=== PATIENT | female | born 1985 | race Caucasian/White ===

== ENCOUNTER 2020-05-06 06:45 | Inpatient (IN) ==
[2020-05-06] MEDS ORDERED: ANCEF 1 GRAM IV PREMIX* 2 G/100 ML BAG IV ONE (06:53)
[2020-05-06] MEDS ORDERED: LR 1000 ML IV 1,000 ML IV ONE ×3 (06:53→07:34)
[2020-05-06] MEDS ORDERED: DILAUDID INJ ONE (07:05)
[2020-05-06] MEDS ORDERED: XYLOCAINE 1 % (PLAIN) ONE (07:05)
[2020-05-06] MEDS ORDERED: ANCEF 1 GRAM IV PREMIX* 1 G/50 ML BAG IV ONE (07:22)
[2020-05-06] MEDS ORDERED: ANCEF VIAL 1 GRAM IVP ONE (07:32)
[2020-05-06] MEDS ORDERED: D5 1/2 NS 1000 ML 1,000 ML IV ONE (07:39)
[2020-05-06] MEDS ORDERED: PITOCIN ONE ×2 (07:39→07:45)
[2020-05-06] MEDS ORDERED: DIPRIVAN VIAL ONE (07:45)
[2020-05-06] MEDS ORDERED: REGLAN INJ 10 MG VIAL ONE (07:45)
[2020-05-06] MEDS ORDERED: XYLOCAINE 2 % (PLAIN) ONE (07:45)
[2020-05-06] MEDS ORDERED: EPHEDRINE SULFATE INJ ONE (07:45)
[2020-05-06] MEDS ORDERED: ZOFRAN INJ 4 MG VIAL ONE (07:45)
[2020-05-06] MEDS ORDERED: NS 1000 ML 1,000 ML ONE (08:36)
[2020-05-06] MEDS ORDERED: REGLAN INJ 10 MG VIAL IVP PRN (09:39)
[2020-05-06] MEDS ORDERED: PHENERGAN INJ 25 MG IM PRN (09:39)
[2020-05-06] MEDS ORDERED: BENADRYL INJ 50 MG VIAL IVP PRN (09:39)
[2020-05-06] MEDS ORDERED: ZOFRAN INJ 4 MG VIAL IVP PRN ×2 (09:39→09:55)
[2020-05-06] MEDS ORDERED: MOTRIN TAB 800 MG PO PRN (09:55)
[2020-05-06] MEDS ORDERED: MYLICON TAB 80 MG CHEW PO PRN (09:55)
[2020-05-06] MEDS ORDERED: D5 1/2 NS 1000 ML 1,000 ML with PITOCIN 20 UNITS IV SCH ×2 (10:00)
[2020-05-06] MEDS ORDERED: NS IRRIGATION* 1,000 ML ONE (10:04)
[2020-05-06] MEDS: TORADOL 15 MG VIAL IVP SCH ×4 (11:10→22:00)
[2020-05-07] MEDS: TORADOL 15 MG VIAL IVP SCH ×4 (04:15→20:50)
[2020-05-07 04:21] LABS: HEMATOCRIT 37.9 % (36.0-47.0); HEMOGLOBIN 12.8 g/dL (12.0-16.0)
[2020-05-07] MEDS ORDERED: ZOLOFT PO ONE (08:23)
[2020-05-07] MEDS ORDERED: TORADOL 30 MG VIAL IVP PRN (10:00)
[2020-05-07] MEDS: ZOLOFT PO SCH ×2 (10:05→11:28)
[2020-05-07] MEDS: PRENATAL PLUS PO SCH ×2 (10:05→11:27)
[2020-05-07] MEDS: NORMODYNE TAB 100 MG PO SCH ×3 (10:06→20:51)
[2020-05-07] MEDS: SYNTHROID 50 mcg TAB PO SCH ×2 (10:07→11:28)
[2020-05-07] MEDS: PROCARDIA (PLAIN) CAP 10 MG PO SCH ×3 (10:07→21:35)
--- NOTE | 2020-05-07 10:49 | NOTE.PROBC ---
Progress Note OB-C/S Subjective Data Subjective: No complaints, decreased lochia. Tolerating {regular diet. No N/V. Ambulating well. Haynes draining well. Pain under good control with Toradol. Objective Data Result Diagrams: 05/07/20 04:02 Objective Data: CV= RRR no MRG Lungs=CTA Bilaterally Abd=(+) BS, soft, ND, appropriately tender near incision. Bandage removed. Incision clean/dry/intact, no erythema, no bleeding, no discharge. Dermabond/S titches intact. Fundus firm/NT/ at 2 cm below umbilicus. Ext= No edema, NT, No Cords. Graduated Compression Stockings/Sequential Compression Devices Bilaterally. Plan (1) Delivery by section: Plan: doing well and near ready to go home on Percocet and Motrin. prescription monitoring program has been reviewed.
[2020-05-08] MEDS: TORADOL 15 MG VIAL IVP SCH ×2 (05:00→09:37)
[2020-05-08] MEDS ORDERED: ZOLOFT PO ONE (09:29)
[2020-05-08] MEDS: PRENATAL PLUS PO SCH (09:36)
[2020-05-08] MEDS: ZOLOFT PO SCH (09:37)
[2020-05-08] MEDS: NORMODYNE TAB 100 MG PO SCH (09:37)
[2020-05-08] MEDS: PROCARDIA (PLAIN) CAP 10 MG PO SCH (09:46)
[2020-05-08 13:49] VITALS: BP 136/86
== END 2020-05-08 14:10 | disposition home or self-care (01) | DRG 788 ==
LOC: LD 06:45 → MED/SURG 10:54
PROVIDERS: ADMIT Obstetrics & Gynecology; ATTEND Obstetrics & Gynecology
DX: Z3A.39 39 weeks gestation of pregnancy; O99.283 Endocrine, nutritional and metabolic diseases complicating pregnancy, third trimester; Z37.0 Single live birth; O10.013 Pre-existing essential hypertension complicating pregnancy, third trimester; O24.410 Gestational diabetes mellitus in pregnancy, diet controlled; E03.8 Other specified hypothyroidism

== ENCOUNTER 2021-01-27 05:03 | Observation (INO) ==
[2021-01-27 05:16] VITALS: BMI 44.3
[2021-01-27] MEDS ORDERED: NS 1000 ML 1,000 ML IV ONE (05:34)
[2021-01-27] MEDS ORDERED: TYLENOL 325 MG TAB PO ONE ×2 (05:34→05:55)
--- NOTE | 2021-01-27 05:34 | DR.FEVERAD ---
HPI <Jeff Arreaga - Kameron Filed: 01/27/21 08:46> Time seen Time Seen by Provider: 01/27/21 05:26 PCP Primary Care Physician: EMILIA HERNANDEZ HPI Comment HPI Comment: PATIENT COMPLAINS OF FEVER, CHILLS, NONPRODUCTIVE COUGH, RIGHT BREAST PAIN, SWELLING AND REDNESS. HAS EXERTIONAL DYSPNEA Complaints/Symptoms Chief Complaint Doctor Comments: FEVER, NAUSEA, EMESIS Chief Complaint:: STARTED WEDNESDAY NIGHT HAVING FEVER, N/V, CHILLS. Self Treatment fo Chief Complaint: KEFLEX LASTNIGHT ABOUT 1900, TYLENOL AT 0345, MOTRIN AT 0345. COVID-19 Coronavirus risk:travel/contact w/high risk person: Yes Has patient experienced Coronavirus symptoms: Yes Coronavirus symptoms experienced: Fever, Coughing and Shortness of Breath Source History Provided: Patient Mode of Arrival Mode of Arrival: Wheelchair Timing Onset of Chief Complaint: 01/25/21 Came on: Suddenly Duration Duration: Since Onset How lon Duration: Days Modifying factors Modifying factors: Tylenol Associated signs and symptoms Associated signs and symptoms: Weakness PMH <Jeff Arreaga - Last Filed: 01/27/21 08:46> PMH Past Medical History: Yes Past Medical History: Hypertension Past Surgical History: Yes Surgical History: Family History History of Family Medical Conditions: Yes Family Medical History: Diabetes Mellitus, Cancer and Hypertension Social History Does any household member use tobacco: No Do you use any recreational Drugs:: No Lives With: Family Lives Where: Home Travel Risk Coronavirus risk:travel/contact w/high risk person: Yes Has patient experienced Coronavirus symptoms: Yes Coronavirus symptoms experienced: Fever, Coughing and Shortness of Breath Infectious screening Have you traveled outside the country in the last 6 months?: No Isolation: Droplet ROS <Jeff Sres Kameron Filed: 01/27/21 08:46> Review of Systems Constitutional: See HPI, Chills, Fever and Weakness Eyes: No Symptoms Reported ENTM: No Symptoms Reported Respiratoy: See HPI and Dry Cough Cardiovascular: No Symptoms Reported Gastrointestinal/Abdominal: No Symptoms Reported Genitourinary: No Symptoms Reported Neurological: No Symptoms Reported Musculoskeletal: No Symptoms Reported Integumentary: Other (RIGHT BREAST PAIN, SWELLING, REDNESS) Hematologic/Lymphatic: No Symptoms Reported Endocrine: No Symptoms Reported Psychiatric: No Symptoms Reported All Other Systems: Reviewed and Negative PE <Jeff Arreaga - Last Filed: 01/27/21 08:46> Vital Signs Vitals: Temperature 99.5 F Pulse Rate 99 Respiratory Rate 22 Blood Pressure [Left Arm] 136/86 Blood Pressure 124/75 O2 Sat by Pulse Oximetry 97 General General Appearance: Alert and In Distress (MODERATE TACHYPNEA) Head Head Exam: Normal Inspection and Atraumatic Eyes Eye exam: Normal Appearance, PERRL and EOMI ENT ENT Exam: Normal Exam and Normal Oropharynx External Ear Exam: Normal External Inspection TM/Canal Exam: Bilateral: Normal Nose Exam: Normal Nose Exam Mouth Exam: Normal Inspection Neck Neck Exam: Normal Inspection and Full ROM Respiratory Respiratory Exam: Bilateral: Clear to Auscultation (NO WHEEZES OR RHONCHI), Bilateral: Decreased Breath Sounds and Bilateral: Dullness on Percussion and Lower: Decreased Breath Sounds and Lower: Dullness on Percussion Cardiovascular Cardiovascular Exam: Normal Rhythm and Tachycardia Abdominal Exam Abdominal Exam: Normal Inspection and Normal Bowel Sounds Back Back Exam: Normal Inspection and Full ROM Neurologic Neurological Exam: Alert and Oriented X3 Psychiatric Psychiatric Exam: Normal Affect and Normal Mood Skin Skin Exam: Erythema (RIGHT BREAST LOWER OUTER QUADRANT WITH TENDERNESS,SWELLING ERYTHEMA) <JILLIAN HALE - Last Filed: 01/27/21 10:00> Vital Signs Vitals: Temperature 99.5 F Pulse Rate 99 Respiratory Rate 22 Blood Pressure [Left Arm] 136/86 Blood Pressure 124/75 O2 Sat by Pulse Oximetry 97 [facility] <Jeff Arreaga - Last Filed: 01/27/21 08:46> Differential Diagnosis Differential Diagnosis: Sepsis (COVID, PNEUMONIA, ACUTE MASTITIS) COURSE <Jeff Arreaga - Last Filed: 01/27/21 08:46> Treatment Treatment: IV NORMAL SALINE 1 LITER BOLUS, AFTER 2 SETS BLOOD CULTURES, CLINDAYMCIN 900MG IVPB, TYLENOL 650MG ORALLY, PULSE OXIMETRY 95% ON 2 LITERS. PATIENT CARE ENDORSED TO DR HALE AT 0845 FOR DISPOSITION ROR <Jeff Arreaga - Last Filed: 01/27/21 08:46> Labs Reviewed Laboratory Results Reviewed?: Yes Result Diagrams: 01/27/21 06:00 01/27/21 06:00 Laboratory: WBC 10.2 X10^3/uL (3.6-10.0) H 01/27/21 06:00 RBC 4.58 X10^6/uL (3.5-5.4) 01/27/21 06:00 Hgb 13.6 g/dL (12.0-16.0) 01/27/21 06:00 Hct 38.8 % (36.0-47.0) 01/27/21 06:00 MCV 84.8 fL (80.0-100.0) 01/27/21 06:00 MCH 29.7 pg (27.0-34.0) 01/27/21 06:00 MCHC 35.0 g/dL (33.0-35.0) 01/27/21 06:00 RDW 13.8 % (11.6-16.5) 01/27/21 06:00 Plt Count 195 X10^3/uL (150.0-450.0) 01/27/21 06:00 MPV 7.6 fL (7.4-11.0) 01/27/21 06:00 Neut % (Auto) 85.4 % (42.0-75.0) H 01/27/21 06:00 Lymph % (Auto) 7.5 % (21.0-51.0) L 01/27/21 06:00 Brooks % (Auto) 4.5 % (0.0-13.0) 01/27/21 06:00 Eos % (Auto) 2.5 % (0.9-2.9) 01/27/21 06:00 Baso % (Auto) 0.1 % (0.2-1.0) L 01/27/21 06:00 Neut # (Auto) 8.7 x10^3/uL (2.2-4.8) H 01/27/21 06:00 Lymph # (Auto) 0.8 X10^3/uL (1.3-2.9) L 01/27/21 06:00 Brooks # (Auto) 0.5 x10^3/uL (0.3-0.8) 01/27/21 06:00 Eos # (Auto) 0.3 x10^3/uL (0.0-0.2) H 01/27/21 06:00 Baso # (Auto) 0.0 X10^3/uL (0.0-0.1) 01/27/21 06:00 Absolute Nucleated RBC 0.0 /100WBC 01/27/21 06:00 PT 15.3 SECONDS (11.8-14.3) 01/27/21 06:00 INR Target Range - 01/27/21 06:00 INR 1.27 (0.8-1.3) 01/27/21 06:00 D-Dimer 0.97 ug/ml (0.0-0.57) H* 01/27/21 06:00 Sample Site Rr 01/27/21 05:21 ABG pH 7.510 (7.35-7.45) H 01/27/21 05:21 ABG pCO2 31.0 mmHg (35.0-45.0) L 01/27/21 05:21 ABG pO2 47.0 mmHg (80.0-100.0) L* 01/27/21 05:21 ABG HCO3 24.7 mmol/L (22-26) 01/27/21 05:21 ABG O2 Saturation 87.0 % (90-100) L 01/27/21 05:21 ABG Base Excess 2.2 mmol/L (-2.0-2.0) H 01/27/21 05:21 David Test Pos 01/27/21 05:21 A-a Gradient 64.0 mmHg 01/27/21 05:21 FiO2 21.0 01/27/21 05:21 Blood Gas Comments Shannon well 01/27/21 05:21 Sodium 141 mmol/L (136-145) 01/27/21 06:00 Corrected Sodium 142 mmol/L (136-145) 01/27/21 06:00 Potassium 3.3 mmol/L (3.5-5.1) L 01/27/21 06:00 Chloride 104 mmol/L (98-107) 01/27/21 06:00 Carbon Dioxide 24.0 mmol/L (21-32) 01/27/21 06:00 BUN 12 mg/dL (7-18) 01/27/21 06:00 Creatinine 1.05 mg/dL (0.55-1.02) H 01/27/21 06:00 Est GFR (MDRD) Af Amer > 60 (>60) 01/27/21 06:00 Est GFR (MDRD) Non-Af > 60 (>60) 01/27/21 06:00 Glucose 137 mg/dL (65-99) H 01/27/21 06:00 Lactic Acid 2.0 mmol/L (0.4-2.0) 01/27/21 06:00 Calcium 8.7 mg/dL (8.5-10.1) 01/27/21 06:00 Ferritin 221 ng/mL (8-252) 01/27/21 06:00 HCG, Qual Negative <10 mIU/mL 01/27/21 06:00 SARS-CoV-2 (PCR) Positive (NEGATIVE) A 01/27/21 05:26 Influenza Type A (PCR) Negative (NEGATIVE) 01/27/21 05:26 Influenza Type B (PCR) Negative (NEGATIVE) 01/27/21 05:26 RSV (PCR) Negative (NEGATIVE) 01/27/21 05:26 XRAY X-ray Results: PORTABLE CHEST XRAY- PATCHY OPACITY LEFT MID LOWER LUNG EKG Rate: 111 [place]: Normal Rhythm: ST ST: Nonsp <PETER M ESMONT - Last Filed: 01/27/21 10:00> Labs Reviewed Laboratory: WBC 10.2 X10^3/uL (3.6-10.0) H 01/27/21 06:00 RBC 4.58 X10^6/uL (3.5-5.4) 01/27/21 06:00 Hgb 13.6 g/dL (12.0-16.0) 01/27/21 06:00 Hct 38.8 % (36.0-47.0) 01/27/21 06:00 MCV 84.8 fL (80.0-100.0) 01/27/21 06:00 MCH 29.7 pg (27.0-34.0) 01/27/21 06:00 MCHC 35.0 g/dL (33.0-35.0) 01/27/21 06:00 RDW 13.8 % (11.6-16.5) 01/27/21 06:00 Plt Count 195 X10^3/uL (150.0-450.0) 01/27/21 06:00 MPV 7.6 fL (7.4-11.0) 01/27/21 06:00 Neut % (Auto) 85.4 % (42.0-75.0) H 01/27/21 06:00 Lymph % (Auto) 7.5 % (21.0-51.0) L 01/27/21 06:00 Brooks % (Auto) 4.5 % (0.0-13.0) 01/27/21 06:00 Eos % (Auto) 2.5 % (0.9-2.9) 01/27/21 06:00 Baso % (Auto) 0.1 % (0.2-1.0) L 01/27/21 06:00 Neut # (Auto) 8.7 x10^3/uL (2.2-4.8) H 01/27/21 06:00 Lymph # (Auto) 0.8 X10^3/uL (1.3-2.9) L 01/27/21 06:00 Brooks # (Auto) 0.5 x10^3/uL (0.3-0.8) 01/27/21 06:00 Eos # (Auto) 0.3 x10^3/uL (0.0-0.2) H 01/27/21 06:00 Baso # (Auto) 0.0 X10^3/uL (0.0-0.1) 01/27/21 06:00 Absolute Nucleated RBC 0.0 /100WBC 01/27/21 06:00 PT 15.3 SECONDS (11.8-14.3) 01/27/21 06:00 INR Target Range - 01/27/21 06:00 INR 1.27 (0.8-1.3) 01/27/21 06:00 D-Dimer 0.97 ug/ml (0.0-0.57) H* 01/27/21 06:00 Sample Site Rr 01/27/21 05:21 ABG pH 7.510 (7.35-7.45) H 01/27/21 05:21 ABG pCO2 31.0 mmHg (35.0-45.0) L 01/27/21 05:21 ABG pO2 47.0 mmHg (80.0-100.0) L* 01/27/21 05:21 ABG HCO3 24.7 mmol/L (22-26) 01/27/21 05:21 ABG O2 Saturation 87.0 % (90-100) L 08/16/21 05:21 ABG Base Excess 2.2 mmol/L (-2.0-2.0) H 01/27/21 05:21 David Test Pos 01/27/21 05:21 A-a Gradient 64.0 mmHg 01/27/21 05:21 FiO2 21.0 01/27/21 05:21 Blood Gas Comments Shannon well sw 01/27/21 05:21 Sodium 141 mmol/L (136-145) 01/27/21 06:00 Corrected Sodium 142 mmol/L (136-145) 01/27/21 06:00 Potassium 3.3 mmol/L (3.5-5.1) L 01/27/21 06:00 Chloride 104 mmol/L (98-107) 01/27/21 06:00 Carbon Dioxide 24.0 mmol/L (21-32) 01/27/21 06:00 BUN 12 mg/dL (7-18) 01/27/21 06:00 Creatinine 1.05 mg/dL (0.55-1.02) H 01/27/21 06:00 Est GFR (MDRD) Af Amer > 60 (>60) 01/27/21 06:00 Est GFR (MDRD) Non-Af > 60 (>60) 01/27/21 06:00 Glucose 137 mg/dL (65-99) H 01/27/21 06:00 Lactic Acid 2.0 mmol/L (0.4-2.0) 01/27/21 06:00 Calcium 8.7 mg/dL (8.5-10.1) 01/27/21 06:00 Ferritin 221 ng/mL (8-252) 01/27/21 06:00 HCG, Qual Negative <10 mIU/mL 01/27/21 06:00 SARS-CoV-2 (PCR) Positive (NEGATIVE) A 01/27/21 05:26 Influenza Type A (PCR) Negative (NEGATIVE) 01/27/21 05:26 Influenza Type B (PCR) Negative (NEGATIVE) 01/27/21 05:26 RSV (PCR) Negative (NEGATIVE) 01/27/21 05:26 Opioid <Jeff Arreaga - Last Filed: 01/27/21 08:46> Opioid Risk Tool Age (Tristan box if 16-45): No History of Preadolescent Sexual Abuse: No Total: 0 Total Score Risk Category: Low Risk Copyright: Dani PICKENS predicting aberrant behaviors <JILLIAN HALE - Last Filed: 01/27/21 10:00> Opioid Risk Tool Total: 0 Total Score Risk Category: Low Risk <Jeff Arreaga - Last Filed: 01/27/21 08:46> Diagnosis Discharge Problem: COVID <JILLIAN HALE - Last Filed: 01/27/21 10:00> Additional Notes Additional Notes: obs to dr murphy
[2021-01-27 05:35] LABS: ABG BASE EXCESS 2.2 mmol/L (-2.0-2.0); ABG HCO3 24.7 mmol/L (22-26)
[2021-01-27 05:36] LABS: ABG ALLEN TEST POS
[2021-01-27] MEDS ORDERED: NS 1000 ML 1,000 ML ONE (05:42)
[2021-01-27] MEDS ORDERED: DUONEB 0.5 MG/3 MG (3 mL) NEB STA (05:45)
[2021-01-27] MEDS ORDERED: DUONEB 0.5 MG/3 MG (3 mL) NEB ONE (05:49)
[2021-01-27] MEDS ORDERED: CLEOCIN VIAL 600 MG 900 MG in D5W 50 ML IV 50 ML IV STA (06:04)
[2021-01-27] MEDS ORDERED: CLEOCIN 300 MG IV PREMIX 300 MG/50 ML BAG IV ONE (06:12)
[2021-01-27] MEDS ORDERED: CLEOCIN 600 MG IV PREMIX 600 MG/50 ML BAG IV ONE (06:12)
[2021-01-27 06:30] LABS: BASOPHILS % (AUTO) 0.1 % (0.2-1.0); EOSINOPHILS # (AUTO) 0.3 x10^3/uL (0.0-0.2); EOSINOPHILS % (AUTO) 2.5 % (0.9-2.9); HEMATOCRIT 38.8 % (36.0-47.0); HEMOGLOBIN 13.6 g/dL (12.0-16.0); LYMPHOCYTES # (AUTO) 0.8 X10^3/uL (1.3-2.9); LYMPHOCYTES % (AUTO) 7.5 % (21.0-51.0); MEAN CORPUSCULAR HEMOGLOBIN 29.7 pg (27.0-34.0); MEAN CORPUSCULAR VOLUME 84.8 fL (80.0-100.0); MEAN PLATELET VOLUME 7.6 fL (7.4-11.0); MONOCYTES # (AUTO) 0.5 x10^3/uL (0.3-0.8); MONOCYTES % (AUTO) 4.5 % (0.0-13.0); NEUTROPHILS # (AUTO) 8.7 x10^3/uL (2.2-4.8); NEUTROPHILS % (AUTO) 85.4 % (42.0-75.0); PLATELET COUNT 195 X10^3/uL (150.0-450.0); RED BLOOD COUNT 4.58 X10^6/uL (3.5-5.4); RED CELL DISTRIBUTION WIDTH 13.8 % (11.6-16.5); WHITE BLOOD COUNT 10.2 X10^3/uL (3.6-10.0)
[2021-01-27 06:38] LABS: BLOOD UREA NITROGEN 12 mg/dL (7-18); CALCIUM 8.7 mg/dL (8.5-10.1); CHLORIDE 104 mmol/L (98-107); COR NA(FOR HYPERGLY) 142 mmol/L (136-145); CREATININE 1.05 mg/dL (0.55-1.02); SODIUM 141 mmol/L (136-145); eGFR NON BLACK RACES > 60 (>60)
[2021-01-27 07:27] LABS: SERUM PREGNANCY TEST, QUAL NEGATIVE <10 mIU/mL
--- NOTE | 2021-01-27 07:29 | RAD ---
HISTORYDYSPNEASTUDYCHEST, 1 VIEWCOMPARISONNoneTECHNIQUEAP view of the chestFINDINGSCardiac and mediastinal contours are within normal limits. Mild left mid and lower lung patchy opacity. No definite pleural effusion or pneumothorax. Soft tissue attenuation limits evaluation.IMPRESSIONPatchy opacity in the left mid and lower lung may represent pneumonia.Electronically signed by: Jakob Yanez (Jan 27, 2021 07:27:30)
--- NOTE | 2021-01-27 08:44 | US ---
HISTORYMASTITIS RT BREAST, REDNESS AND PAINFUL TO TOUCH, BREASTFEEDINGSTUDYBREASTCOMPARISONNoneTECHNIQUEMultiple browning scale and color Doppler images of the ri ght breast were obtained.FINDINGSSonographic evaluation of the region of interest was performed along the inferior breast from 5 through 9 o'clock. There is heterogeneous background echotexture with dif fuse edema and hypervascularity but without definite focal organized fluid collection to suggest absc ess. No suspicious cystic or solid nodule is identified.IMPRESSIONSonographic findings most consisten t with mastitis. No definite abscess. Clinical correlation and follow-up recommended. Patient should begin yearly mammographic screening at age 40 unless clinically indicated prior to that time. If the patient were to develop progressive/worsening clinical symptoms, breast MRI without and with contrast could be considered.ACR CATEGORY: 2- benign.Electronically signed by: LUPIS DUMONT (Jan 27, 2021 08 :42:28)
--- NOTE | 2021-01-27 09:36 | CT ---
HISTORY:Mastitis, nausea and vomiting, fever, elevated D-dimerStudy: CTA chestComparison:Same day radiographTechnique: Multiple axial images of the chest were obtained after the administration of IV contrast. 3D reconstructions were performed utilizing radial maximum intensity projection imaging. Dose reduction techniques including Automated Exposure Control (AEC) and adjustment of mA and kV were utilized.Findings:Contrast opacification of the pulmonary arteries is adequate to the level of the proximal segmental branches. No evidence of acute pulmonary emboli . Normal appearance of the heart and pericardium . The aorta appears normal in course and caliber. Multifocal ground-glass infiltrates are seen in the left upper lobe. Probable developing infiltrates or edema in the left lower lobe. No effusion or pneumothorax. Airways are patient.The soft tissues and osseous structures appear intact. Partially visualized bariatric surgery in the upper abdomen.IMPRESSION:Multifocal ground-glass infiltrates in the left upper lobe with probable developing infiltrates in the left lower lobe suggestive of pneumonia with atypical etiologies such as COVID-19 not excluded.No acute pulmonary embolism.Electronically signed by: MIKEY CRUZ (Jan 27, 2021 09:35:57)
[2021-01-27 10:12] LABS: BILIRUBIN,URINE NEGATIVE (NEGATIVE); BLOOD/HEMOGLOBIN,URINE 1+ (NEGATIVE); GLUCOSE, URINE NEGATIVE (NEGATIVE); KETONES,URINE NEGATIVE (NEGATIVE); LEUKOCYTE ESTERASE ,URINE 1+ (NEGATIVE); NITRITES,URINE NEGATIVE (NEGATIVE); PROTEIN,URINE 3+ (NEGATIVE); UROBILINOGEN,URINE NORMAL (NORMAL)
[2021-01-27 10:26] LABS: APPEARANCE,URINE SLIGHTLY HAZY (CLEAR); BACTERIA,URINE TRACE /HPF (NEGATIVE); COLOR,URINE YELLOW (YELLOW); RBC,URINE 0-2 /HPF (0-3); SQUAMOUS EPITHELIAL CELL,UR MODERATE /HPF (NEGATIVE)
[2021-01-27] MEDS ORDERED: ZOFRAN INJ 4 MG VIAL IVP PRN (11:37)
[2021-01-27] MEDS: TYLENOL 325 MG TAB PO PRN ×2 (11:56→16:15)
[2021-01-27] MEDS ORDERED: REMDESIVIR 200 MG in NS 100 ML IV 140 ML IV NR (13:07)
[2021-01-27] MEDS ORDERED: PHARMACY CONSULT - IVERMECTIN XX SCH (14:00)
[2021-01-27] MEDS: ROBITUSSIN DM PO SCH ×3 (15:10→21:30)
[2021-01-27] MEDS: PROTONIX INJ 40 MG VIAL IVP SCH ×2 (15:10→21:30)
[2021-01-27] MEDS: IVERMECTIN PO SCH (15:10)
[2021-01-27] MEDS: SOLU-Medrol 40 MG VIAL IVP SCH ×2 (15:10→21:55)
[2021-01-27] MEDS: NS 1000 ML 1,000 ML IV SCH (15:10)
[2021-01-27] MEDS: LOVENOX INJ 40 MG SYR SC SCH (16:13)
[2021-01-27] MEDS: ZITHROMAX INJ 500 MG VIAL 500 MG in NS 250 ML IV 250 ML IV SCH (16:14)
[2021-01-27] MEDS: ZOSYN VIAL 3.375 GRAMS 3.375 G in NS 100 ML IV + SPIKE MINIBAG* 100 ML IV SCH ×2 (18:27→23:25)
[2021-01-27] MEDS: PULMICORT NEB TX 0.5 MG NEB SCH (22:00)
[2021-01-27] MEDS: BROVANA IN SCH (22:00)
[2021-01-28 04:53] LABS: ABG ALLEN TEST POS; ABG BASE EXCESS 0.3 mmol/L (-2.0-2.0); ABG HCO3 25.4 mmol/L (22-26)
[2021-01-28] MEDS: NS 1000 ML 1,000 ML IV SCH ×2 (05:58→19:11)
[2021-01-28] MEDS: ZOSYN VIAL 3.375 GRAMS 3.375 G in NS 100 ML IV + SPIKE MINIBAG* 100 ML IV SCH ×3 (05:59→21:03)
[2021-01-28] MEDS: SOLU-Medrol 40 MG VIAL IVP SCH ×3 (05:59→21:02)
[2021-01-28 06:17] LABS: BASOPHILS % (AUTO) 0.1 % (0.2-1.0); HEMATOCRIT 34.7 % (36.0-47.0); HEMOGLOBIN 11.9 g/dL (12.0-16.0); LYMPHOCYTES % (AUTO) 6.4 % (21.0-51.0); MEAN CORPUSCULAR HEMOGLOBIN 29.3 pg (27.0-34.0); MEAN CORPUSCULAR HGB CONC 34.5 g/dL (33.0-35.0); MEAN PLATELET VOLUME 7.9 fL (7.4-11.0); MONOCYTES # (AUTO) 0.6 x10^3/uL (0.3-0.8); MONOCYTES % (AUTO) 4.1 % (0.0-13.0); NEUTROPHILS # (AUTO) 13.4 x10^3/uL (2.2-4.8); NEUTROPHILS % (AUTO) 89.4 % (42.0-75.0); PLATELET COUNT 185 X10^3/uL (150.0-450.0); RED BLOOD COUNT 4.08 X10^6/uL (3.5-5.4); RED CELL DISTRIBUTION WIDTH 13.4 % (11.6-16.5); WHITE BLOOD COUNT 14.9 X10^3/uL (3.6-10.0)
--- NOTE | 2021-01-28 06:28 | RAD ---
HISTORYPNEUMONIASTUDYCHEST, 1 VIEWCOMPARISONOne day prior.TECHNIQUEAP view of the chestFINDINGSCardiac and mediastinal contours are within normal limits. No significant change in scattered left lung patchy opacities. No definite pleural effusion or pneumothorax.IMPRESSIONNo significant change in patchy left lung opacities consistent with pneumonia.Electronically signed by: Jakob Yanez (Jan 28, 2021 06:26:48)
[2021-01-28 06:42] LABS: BLOOD UREA NITROGEN 13 mg/dL (7-18); CALCIUM 8.5 mg/dL (8.5-10.1); CHLORIDE 105 mmol/L (98-107); COR NA(FOR HYPERGLY) 142 mmol/L (136-145); CREATININE 0.88 mg/dL (0.55-1.02); SODIUM 139 mmol/L (136-145); eGFR NON BLACK RACES > 60 (>60)
[2021-01-28] MEDS: BROVANA IN SCH ×2 (08:40→21:24)
[2021-01-28] MEDS: PULMICORT NEB TX 0.5 MG NEB SCH ×2 (08:40→21:24)
[2021-01-28] MEDS: PROTONIX INJ 40 MG VIAL IVP SCH ×2 (09:40→21:02)
[2021-01-28] MEDS: VIBRAMYCIN PO SCH ×2 (09:40→21:02)
[2021-01-28] MEDS: LOVENOX INJ 40 MG SYR SC SCH (09:40)
[2021-01-28] MEDS: IVERMECTIN PO SCH (09:40)
[2021-01-28] MEDS: ROBITUSSIN DM PO SCH ×4 (09:40→21:02)
[2021-01-28] MEDS: REMDESIVIR 100 MG in NS 100 ML IV + SPIKE MINIBAG* 120 ML IV SCH (09:40)
[2021-01-28] MEDS: ZITHROMAX INJ 500 MG VIAL 500 MG in NS 250 ML IV 250 ML IV SCH (11:00)
--- NOTE | 2021-01-28 18:30 | DR.H&P ---
H&P - History & Physical for Day of: H&P Date: 01/27/21 - Chief Complaint Chief Complaint: PATIENT COMPLAINS OF FEVER, CHILLS, NONPRODUCTIVE COUGH, RIGHT BREAST PAIN, SWELLING AND REDNESS - History of Present Illness History of Present Illness: PT IS 35 WF ER ADMISSION WITH ACUTE MASTITIS AND COVID 19 PNEUMONIA WITH HYPOXIA. PT IS 6 MOS POST AND BREAST FEEDING. PT HAS PMH OF HTN, NILES. PT ADMITTED FOR TREATMENT OF ACUTE ILLNESS - Past Medical History Past Medical History: Hypertension - Past Surgical History Surgical History: - Family History Family Medical History: Diabetes Mellitus, Cancer, Hypertension - Social History Does patient currently use any type of tobacco product: No Have you used tobacco products in the last 12 months: No Type of Tobacco Use: None Does any household member use tobacco: No Alcohol Use: None Drug Use: None - Medications Home Medications: No Known Drug Allergies Allergy (Verified 05/06/20 07:30) CONTINUE taking the following medications hydrochlorothiazide 25 mg PO DAILY 01/27/21 [History] nifedipine 60 mg PO DAILY 01/27/21 [History] propranolol 80 mg PO HS 01/27/21 [History] - Review of Systems Constitutional: Fever, Weakness, Malaise Eyes: No Symptoms Reported ENT: No Symptoms Reported Respiratory: SOB with Excertion Cardiovascular: Edema Gastrointestinal: No Symptoms Reported Genitourinary: No Symptoms Reported Skin: Other (REDNESS TO RIGHT BREAST) Neurological: No Symptoms Reported - Physical Exam Vital Signs: Temperature 98.0 F Pulse Rate [Left Brachial] 74 Pulse Rate 71 Respiratory Rate 20 Blood Pressure [Left Arm] 119/67 Blood Pressure 120/69 O2 Sat by Pulse Oximetry 96 Oriented: Normal Eyes: Normal Ear: Normal Nose: Normal Throat: Normal Respiratory: RLL Diminished, LLL Diminished Cardiovascular: Normal, Edema : Normal Auscultation: Bowel Sounds: Normal Palpation: Normal Tenderness: Normal Skin: Red, Tender, Hot (RIGHT BREAST) Musculoskeletal: Normal Psychiatric: Anxiety Affect: Anxious Speech Pattern: Clear, Appropriate - Assessment/Plan (1) Pneumonia due to COVID-19 virus Status: Acute Plan: ADMIT, ICU ISOLATION. IV REMDESIVIR, RESP THERAPY, SUPPLMENTAL O2. LOVENOX, IV HYDRATION, CARDIAC MONITORING. BP CONTROL, VERIFY HOME MEDICATION. DUO NEBS, IV SOLU MEDROL, IV ATBX. BLOOD CULTURES ON ADMISSION, CTA CHEST ON ADMISSION (2) Mastitis, right, acute Status: Acute (3) Hypoxia Status: Acute - Allergies Allergies/Adverse Reactions: Allergies Allergy/AdvReac Type Severity Reaction Status Date / Time No Known Drug Allergies Allergy Verified 05/06/20 07:30
[2021-01-28] MEDS ORDERED: PATIENT'S HOME MEDICATION PO SCH (21:00)
[2021-01-28] MEDS: HYDROCHLOROTHIAZIDE 25 MG TAB PO SCH (21:01)
[2021-01-28] MEDS: SYNTHROID 50 mcg TAB PO SCH (21:02)
[2021-01-28] MEDS: HumuLIN R SUBCUT PRN (21:03)
[2021-01-28 22:43] LABS: ALANINE AMINOTRANSFERASE 23 Units/L (12-78); ALBUMIN 3.4 g/dL (3.4-5.0); ALKALINE PHOSPHATASE 65 Units/L (46-116); ASPARTATE AMINO TRANSFERASE 12 Units/L (15-37); TOTAL PROTEIN 6.9 g/dL (6.4-8.2)
[2021-01-29 05:28] LABS: ABG BASE EXCESS 1.5 mmol/L (-2.0-2.0); ABG HCO3 25.9 mmol/L (22-26)
[2021-01-29 05:29] LABS: ABG ALLEN TEST POS
[2021-01-29] MEDS: SOLU-Medrol 40 MG VIAL IVP SCH (05:58)
[2021-01-29] MEDS: NS 1000 ML 1,000 ML IV SCH (05:58)
[2021-01-29] MEDS: ZOSYN VIAL 3.375 GRAMS 3.375 G in NS 100 ML IV + SPIKE MINIBAG* 100 ML IV SCH (05:58)
[2021-01-29 06:35] LABS: BASOPHILS % (AUTO) 0.1 % (0.2-1.0); HEMATOCRIT 32.1 % (36.0-47.0); HEMOGLOBIN 11.1 g/dL (12.0-16.0); LYMPHOCYTES # (AUTO) 1.3 X10^3/uL (1.3-2.9); LYMPHOCYTES % (AUTO) 8.9 % (21.0-51.0); MEAN CORPUSCULAR HEMOGLOBIN 29.1 pg (27.0-34.0); MEAN CORPUSCULAR HGB CONC 34.5 g/dL (33.0-35.0); MEAN CORPUSCULAR VOLUME 84.3 fL (80.0-100.0); MEAN PLATELET VOLUME 8.8 fL (7.4-11.0); MONOCYTES # (AUTO) 0.8 x10^3/uL (0.3-0.8); MONOCYTES % (AUTO) 5.4 % (0.0-13.0); NEUTROPHILS % (AUTO) 85.6 % (42.0-75.0); PLATELET COUNT 203 X10^3/uL (150.0-450.0); RED BLOOD COUNT 3.81 X10^6/uL (3.5-5.4); RED CELL DISTRIBUTION WIDTH 13.6 % (11.6-16.5); WHITE BLOOD COUNT 14.1 X10^3/uL (3.6-10.0)
[2021-01-29] MEDS: HumuLIN R SUBCUT PRN (06:59)
--- NOTE | 2021-01-29 08:14 | RAD ---
HISTORYPneumoniaSTUDYOne-view [id number] is no significant change in appearance of the chest. Cardiomegaly again noted with increased interstitial pulmonary densities, left greater than right and no evidence for focal consolidation, developing pneumothorax or pleural fluid.IMPRESSIONNo change or new abnormality since 1 day prior.Electronically signed by: THADDEUS REED (Jan 29, 2021 08:12:20)
[2021-01-29 08:51] LABS: ALANINE AMINOTRANSFERASE 23 Units/L (12-78); ALKALINE PHOSPHATASE 71 Units/L (46-116); ASPARTATE AMINO TRANSFERASE 10 Units/L (15-37); BLOOD UREA NITROGEN 18 mg/dL (7-18); CALCIUM 8.5 mg/dL (8.5-10.1); CARBON DIOXIDE 25.2 mmol/L (21-32); CHLORIDE 104 mmol/L (98-107); COR CA(FOR HYPOALB) 9.3 mg/dL (8.5-10.1); COR NA(FOR HYPERGLY) 143 mmol/L (136-145); CREATININE 0.96 mg/dL (0.55-1.02); SODIUM 138 mmol/L (136-145); TOTAL PROTEIN 6.7 g/dL (6.4-8.2); eGFR NON BLACK RACES > 60 (>60)
[2021-01-29] MEDS ORDERED: PROCARDIA XL 24-hr PO SCH (09:00)
[2021-01-29] MEDS ORDERED: ZOLOFT PO SCH (09:00)
[2021-01-29] MEDS ORDERED: ZOLOFT ONE (09:03)
[2021-01-29] MEDS: PULMICORT NEB TX 0.5 MG NEB SCH (09:05)
[2021-01-29] MEDS: BROVANA IN SCH (09:05)
[2021-01-29] MEDS: REMDESIVIR 100 MG in NS 100 ML IV + SPIKE MINIBAG* 120 ML IV SCH (09:10)
[2021-01-29] MEDS: HYDROCHLOROTHIAZIDE 25 MG TAB PO SCH (09:18)
[2021-01-29] MEDS: VIBRAMYCIN PO SCH (09:19)
[2021-01-29] MEDS: PROTONIX INJ 40 MG VIAL IVP SCH (09:19)
[2021-01-29] MEDS: SYNTHROID 50 mcg TAB PO SCH (09:19)
[2021-01-29] MEDS: ROBITUSSIN DM PO SCH ×2 (09:19→13:30)
[2021-01-29] MEDS: LOVENOX INJ 40 MG SYR SC SCH (09:20)
[2021-01-29] MEDS: IVERMECTIN PO SCH (09:20)
[2021-01-29] MEDS ORDERED: VALTREX PO ONE (10:29)
[2021-01-29] MEDS: ZITHROMAX INJ 500 MG VIAL 500 MG in NS 250 ML IV 250 ML IV SCH (11:00)
[2021-01-29 12:11] VITALS: BP 141/87
[2021-01-29] MEDS ORDERED: SNACK - Diabetic Appropriate PO SCH (20:00)
== END 2021-01-29 14:37 | disposition home or self-care (01) ==
LOC: OBS 05:03 → ER 05:03 → MED/SURG 10:29
PROVIDERS: ADMIT Internal Medicine; ATTEND Internal Medicine
DX: I10 Essential (primary) hypertension; U07.1 COVID-19; R73.9 Hyperglycemia, unspecified; O91.22 Nonpurulent mastitis associated with the puerperium; R09.02 Hypoxemia; E05.90 Thyrotoxicosis, unspecified without thyrotoxic crisis or storm; J12.81 Pneumonia due to SARS-associated coronavirus